=== PATIENT | female | born 1945 | race African-American/Black ===

== ENCOUNTER 2017-01-27 14:53 | Emergency (ER) | payer MEDICARE ==
[~2017-01-27] VITALS: Ht 170.2 cm; Wt 99.8 kg
--- NOTE | ~2017-01-27 | CT2 ---
[facility] A Service of [facility] RADIOLOGY TEXT RESULTS PATIENT: KRISHAN GRIJALVA LOCATION: [facility] : 43 UNIT #: [id number] AGE: [address]: Mahi Lopez MD SEX: F ORDER DR: [id number] [facility] [address] [place], [place] [address] [id number] MR#: [id number] Acc #: [id number] NAME: KRISHAN GRIJALVA. : 1945 SEX: F STUDY DATE/TIME: UNIT: [facility] ROOM: STUDY DESCRIPTION: CT Abd and Pelv W Cont Attending Physician: Mahi Lopez M.D. Ordering Physician: Mahi Lopez M.D. Primary Care Physician: Lisha Andrew M.D. MEDICAL IMAGING REPORT This report is preliminary unless electronic signature is present EXAM CT abdomen and pelvis with contrast 01/27/2017 1834 hours HISTORY 71-year-old woman with complaint of epigastric pain and nausea with diarrhea since 01/09/2017. COMPARISON CT abdomen and pelvis 03/13/[address] images were obtained from the lung bases through the pubic symphysis with intravenous contrast. Sagittal and coronal reconstructions were performed. This CT exam was performed with one or more of the following radiation dose reduction techniques: automatic exposure control, adjustment of mA and/or kV according to patient size, and iterative reconstruction. FINDINGS The lung bases are clear. There are no effusions. There is no thickening of the distal esophagus. Images through the abdomen demonstrate evidence of prior sphincterotomy with dilated common bile duct with air-fluid level and pneumobilia similar to prior CT. The liver is normal in size. There is a vague wedge-shaped defect laterally near the dome of the liver significantly smaller than 03/13/2016 most likely representing an area of previous ischemic change. This does not appear mass-like and has improved. The spleen, pancreas are normal. The adrenal glands are normal. The right kidney demonstrates a stable cyst medially in the fol-bo-[id number] pole. There are tiny cortical cyst in the left kidney. There is no renal or ureteral calculus. No obstruction. [facility]. [facility] A Service of [facility] & [facility] RADIOLOGY TEXT RESULTS PATIENT: KRISHAN GRIJALVA LOCATION: [facility] : 43 UNIT #: [id number] AGE: [address]: Mahi Lopez MD SEX: F ORDER DR: The stomach is unopacified but appears normal. There is no small bowel distension or small bowel wall thickening. The appendix is surgically absent. The colon demonstrates no distension or wall thickening. There are uncomplicated diverticula in the descending colon and sigmoid colon. CT pelvis demonstrates surgical absence of the uterus. There is no adnexal mass or free fluid. There is a fat density periumbilical hernia which is unchanged. There is degenerative change of the lumbar spine with degenerative disc disease and facet arthropathy. No fracture seen. IMPRESSION 1. There is a very small vague triangular-shaped wedge shaped density in the dome of the liver significantly decreased in size from 03/13/2016. This could be related to prior trauma or infarct. This is clearly improved and benign. 2. Prior sphincterotomy with pneumobilia and dilated common bile duct with air-fluid levels. No stones are seen. The pancreas and pancreatic duct are normal. 3. Stable renal cysts with no stone or obstruction. 4. Diverticulosis of the descending colon and sigmoid colon without evidence of diverticulitis. The appendix is surgically absent. Dictated by... Chayito Rand M.D. THIS IS AN ELECTRONICALLY VERIFIED REPORT Chayito Rand M.D. at 01/28/2017 6:51 PM CORTEZ/cristino TD: 01/28/2017 12:43 JOB #: [id number] MEDICAL IMAGING REPORT Page 1 of 1 COPY
[~2017-01-27 14:53] MED LIST: ACETAMINOPHEN PO; ACETAMINOPHEN500 M5 PO; ALKA-SELTZER H1 EACH PO; ARTHRITIS PAIN650 M3 PO; ASPIRIN EC81 M1 PO; ASPIRIN PO; CALCIUM 500 + D1 TAB PO; CERTAGEN PO; EVISTA60 MG PO; FISH OIL 1,0001 CAP PO; GLIPIZIDE10 MG PO; GLUCOPHAGE XR500 MG PO; GLUCOTROL PO; LASIX PO; LEVAQUIN750 MG PO; LIPITOR PO; LISINOPRIL PO; LOPRESSOR PO; METFORMIN HCL500 M1 PO; METHSCOPOLAMINE PO; NEXIUM PO; NORVASC PO; OMEPRAZOLE40 MG PO; PANTOPRAZOLE SO40 MG PO; PHENERGAN25 MG PO; TUMS200 MG PO; VITAL-D RX TABL1 TAB PO; ZYRTEC10 M2 PO
[2017-01-27 17:19] LABS: BASOPHIL# 0.1 X10e3 (0-0.3); BASOPHIL% 0.8 % (0-2.5); EOSINOPHIL# 0.1 X10e3 (0-0.7); EOSINOPHIL% 1.2 % (0.0-7.0); HEMOGLOBIN 12.9 gm/dL (12.0-16.0); LYMPHOCYTE# 3.2 X10e3 (1.0-3.5); LYMPHOCYTE% 35.1 % (17.0-45.0); MEAN CELL VOLUME 90.2 FL (83-96); MEAN CORPUSCULAR HEMOGLOBIN 30.6 PG (28-34); MEAN PLATELET VOLUME 8.1 FL (6.5-11.5); MONOCYTE# 0.9 X10e3 (0-1.0); NEUTROPHIL# 4.8 X10e3 (1.5-7.1); NEUTROPHIL% 52.9 % (40-75); PLATELET COUNT 215 X10e3 (140-420); RED BLOOD COUNT 4.21 X10e (3.90-5.30); RED CELL DISTRIBUTION WIDTH 12.5 % (11.0-15.5); WHITE BLOOD COUNT 9.1 X10e3 (4.0-10.5)
[2017-01-27 17:20] LABS: DIFF IND NO
[2017-01-27 17:34] LABS: URINE SOURCE CLEAN CATCH
[2017-01-27 17:39] LABS: URINE APPEARANCE CLEAR; URINE BILIRUBIN NEG (NEG); URINE BLOOD NEG (NEG); URINE COLOR YELLOW; URINE GLUCOSE NEG (NEG); URINE KETONE NEG (NEG); URINE LEUKOCYTE ESTERASE NEG (NEG); URINE NITRATE NEG (NEG); URINE PH 6.5 (5-8); URINE PROTEIN NEG (NEG); URINE SPECIFIC GRAVITY 1.008 (1.003-1.035); URINE UROBILINOGEN 0.2 MG/DL (NEG)
[2017-01-27 17:41] LABS: ALBUMIN SERUM 4.1 g/dL (3.5-5.0); BILIRUBIN, DIRECT 0.1 mg/dL (0.0-0.2); BILIRUBIN,INDIRECT 0.5 mg/dL (0.0-0.9); BILIRUBIN,TOTAL 0.6 mg/dL (0.2-2.0); BUN/CREATININE RATIO 12.85; CALCIUM SERUM 10.1 mg/dL (8.4-10.2); CREATININE SERUM 0.7 mg/dL (0.6-1.4); GLOM FILT RATE Estimated 100.3 mL/min (>60); POTASSIUM 3.8 mmol/L (3.5-5.1); PROTEIN TOTAL SERUM 7.8 g/dL (6.0-8.3)
[2017-01-27 18:06] LABS: CULTURE INDICATED? NO
== END 2017-01-27 21:35 | disposition home or self-care (01) ==
LOC: CED 14:53
PROVIDERS: Emergency Medicine
DX: R10.84 Generalized abdominal pain (principal); E11.9 Type 2 diabetes mellitus without complications; E78.5 Hyperlipidemia, unspecified; I10 Essential (primary) hypertension; Z90.49 Acquired absence of other specified parts of digestive tract; Z90.89 Acquired absence of other organs; Z88.0 Allergy status to penicillin; Z88.8 Allergy status to other drugs, medicaments and biological substances; Z79.899 Other long term (current) drug therapy
CPT/HCPCS: 36415; 74177; 80048; 80076; 81003; 83690; 85025; 96372; 96374; 96375; 99284; J0360; J0500; J2405; Q9967

== ENCOUNTER → 2017-03-07 | Outpatient (CLI) | payer MEDICARE ==
--- NOTE | ~2017-03-07 | US24 ---
[facility] A Service of [facility] RADIOLOGY TEXT RESULTS PATIENT: KRISHAN GRIJALVA LOCATION: [facility] : 43 UNIT #: [id number] AGE: [address]: MAKI ANDREW MD SEX: F ORDER DR: [id number] [facility] [address] [place], [place] [address] [id number] O MR#: [id number] Acc #: [id number] NAME: KRISHAN GRIJALVA : 1945 SEX: F STUDY DATE/TIME: 03/07/2017 14:10 UNIT: [facility] ROOM: STUDY DESCRIPTION: US Breast Unilateral Attending Physician: Maki Andrew M.D. Referring Physician: Maki Andrew M.D. Ordering Physician: Maki Andrew M.D. Primary Care Physician: Maki Andrew M.D. MEDICAL IMAGING REPORT This report is preliminary unless electronic signature is present EXAM Right breast ultrasound. FINDINGS Please refer to the diagnostic mammogram for details on the ultrasound. BIRADS: 2 Benign finding. Dictated by... Elieser Eubanks M.D. THIS IS AN ELECTRONICALLY VERIFIED REPORT Elieser Eubanks M.D. at 03/08/2017 9:46 AM SANDEEP/chet TD: 03/08/2017 01:26 JOB #: [id number] MEDICAL IMAGING REPORT Page 1 of 1 COPY
--- NOTE | ~2017-03-07 | MY25 ---
[facility] A Service of [facility] RADIOLOGY TEXT RESULTS PATIENT: KRISHAN GRIJALVA LOCATION: [facility] : 43 UNIT #: [id number] AGE: [address]: MAKI ANDREW MD SEX: F ORDER DR: [id number] [id number] [facility] [place], [place] [address] [id number] O MR#: [id number] Acc #: [id number] NAME: KRISHAN GRIJALVA : 1945 SEX: F STUDY DATE/TIME: 03/07/2017 13:35 UNIT: [facility] ROOM: STUDY DESCRIPTION: [facility] DIAG W/ CAD UNI RT Attending Physician: Maki Andrew M.D. Referring Physician: Maki Andrew M.D. Ordering Physician: Maki Andrew M.D. Primary Care Physician: Maki Andrew M.D. MEDICAL IMAGING REPORT This report is preliminary unless electronic signature is present EXAM Right digital diagnostic mammogram with CAD. Right breast ultrasound. CLINICAL HISTORY 71-year-old female with pain in the lateral right breast, two weeks duration. FINDINGS CC, MLO, and ML views of the right breast were obtained. Background breast parenchyma consists of scattered fibroglandular densities. There is some dystrophic calcification within the inferior breast, unchanged. No suspicious mass, microcalcification, or architectural distortion. The exam is unchanged from 07/06/2016. Given the patient's complaints, diagnostic left breast ultrasound was performed. RIGHT BREAST ULTRASOUND: Florez-scale and color ultrasound of the right breast was performed. No suspicious ultrasound findings are identified. No evidence of malignancy. IMPRESSION Benign right breast mammogram and right breast ultrasound. RECOMMENDATIONS: Return to annual screening mammogram. Patients over the age of 40 are entered into a reminder system with target due date for the next mammogram. A result letter will also be sent to the patient. BIRADS: 2 Benign finding [facility] A Service of [facility] RADIOLOGY TEXT RESULTS PATIENT: KRISHAN GRIJALVA LOCATION: [facility] : 43 UNIT #: [id number] AGE: [address]: MAKI ANDREW MD SEX: F ORDER DR: Dictated by... Elieser Eubanks M.D. THIS IS AN ELECTRONICALLY VERIFIED REPORT Elieser Eubanks M.D. at 03/08/2017 9:46 AM SANDEEP/serene TD: 03/08/2017 00:43 JOB #: [id number] MEDICAL IMAGING REPORT Page 1 of 1 COPY
== END | disposition home or self-care (01) ==
LOC: CMAM 12:58
DX: N64.4 Mastodynia (principal)
CPT/HCPCS: 76641; G0206